=== PATIENT | male | born 1995 | race Asian ===

== ENCOUNTER 2017-06-26 15:06 | Emergency (ER) | payer SELFPAY ==
[~2017-06-26] VITALS: Ht 170.2 cm; Wt 111.4 kg
[2017-06-26] MEDS ORDERED: LIDOCAINE HCL 1%/EPI 1:200,000/PF 10 ML VIAL INJ ONE (16:15)
[2017-06-26] MEDS ORDERED: BACITRACIN 0.9 GM PACKET OINTMENT TP ONE (17:16)
[2017-06-26 17:28] VITALS: BP 138/85
== END 2017-06-26 18:22 | disposition home or self-care (01) ==
LOC: EDUNIT# 15:06 → EMS 15:08
DX: S01.81XA Laceration without foreign body of other part of head, initial encounter (principal); X58.XXXA Exposure to other specified factors, initial encounter; Y93.89 Activity, other specified; Y92.89 Other specified places as the place of occurrence of the external cause; Y99.8 Other external cause status
CPT/HCPCS: 12015; 99283; J3490